=== PATIENT | male | born 1995 | race African-American/Black ===

== ENCOUNTER 2024-07-23 15:24 | Emergency (ER) | payer MEDICAID ==
[~2024-07-23] VITALS: Ht 160 cm; Wt 61.2 kg
[2024-07-23 16:15] LABS: APPEARANCE,URINE Clear (CLEAR); BILIRUBIN,URINE Negative (NEGATIVE); BLOOD, URINE Large Ery/uL (NEGATIVE); COLOR,URINE LIGHT YELLOW (YELLOW); KETONES,URINE Negative (NEGATIVE); LEUKOCYTE ESTERASE ,URINE Negative (NEGATIVE); NITRITE, URINE Negative (NEGATIVE); PH,URINE 7.5 (5.0-8.0); PROTEIN,URINE Negative (NEGATIVE); UGLUCOSE Negative (NEGATIVE); UROBILINOGEN,URINE 0.2 EU/dL (0.2)
[2024-07-23 16:57] LABS: BACTERIA,URINE Rare /HPF (None Seen); RBC,URINE 81-100 /HPF (0-2)
[2024-07-23 16:58] LABS: ADD URINE CULTURE YES; MUCUS,URINE Moderate /LPF (None Seen); SQUAMOUS EPITHELIAL CELL,UR Moderate /HPF (None Seen)
[2024-07-23] MEDS ORDERED: ACETAMINOPHEN 325 MG TABLET ONE ×2 (17:21→17:37)
[2024-07-23] MEDS ORDERED: IOHEXOL-300 100 ML VIAL IV ONE (17:22)
[2024-07-23] MEDS ORDERED: ONDANSETRON HCL/PF 4 MG/2 ML VIAL ONE (17:22)
[2024-07-23] MEDS ORDERED: IV NS 0.9% 250 ML IV ONE (17:22)
[2024-07-23 17:23] LABS: BASOPHILS % (AUTO) 0.4 % (0.0-2.0); EOSINOPHILS % (AUTO) 0.1 % (0.0-6.0); HEMATOCRIT 42 % (39-51); HEMOGLOBIN 13.5 g/dL (13.5-17.5); LYMPHOCYTES % (AUTO) 12.7 % (20.0-44.0); MEAN CORPUSCULAR HEMOGLOBIN 28 PG (26.0-33.0); MEAN CORPUSCULAR HGB CONC 32 g/dl (31.0-36.0); MEAN CORPUSCULAR VOLUME 88 fL (80-96); MONOCYTES # (AUTO) 0.3 K/uL (0.1-1.30); MONOCYTES % (AUTO) 3.4 % (2.0-12.0); NEUTROPHILS # (AUTO) 6.4 K/uL (1.8-8.9); NEUTROPHILS % (AUTO) 83.4 % (43.0-81.0); PLATELET COUNT (AUTO) 194 K/uL (150-450); RED BLOOD CELL COUNT(AUTO) 4.73 MIL/uL (4.5-6.0); WHITE BLOOD COUNT (AUTO) 7.6 K/uL (4.3-11.0)
[2024-07-23] MEDS ORDERED: KETOROLAC TROMETHAMINE 15 MG/ML VIAL ONE (17:23)
[2024-07-23 17:36] LABS: CALCIUM, SERUM 8.8 mg/dL (8.5-10.1); CREATININE 1.2 mg/dL (0.6-1.3); POTASSIUM 4.4 mmol/L (3.5-5.1)
[2024-07-23 17:42] LABS: ALBUMIN 4.2 g/dL (3.4-5.0); BILIRUBIN,DIRECT 0.3 mg/dL (0.0-0.2); BILIRUBIN,TOTAL 1.3 mg/dL (0.2-1.0); TOTAL PROTEIN, SERUM 7.5 g/dL (6.4-8.2)
[2024-07-23] MEDS: IV NS 0.9% 1,000 ML BAG IV ONE (17:43)
[2024-07-23] MEDS: ACETAMINOPHEN 325 MG TABLET PO ONE (17:45)
[2024-07-23] MEDS: ONDANSETRON HCL/PF 4 MG/2 ML VIAL IV ONE (17:45)
[2024-07-23] MEDS: KETOROLAC TROMETHAMINE 15 MG/ML VIAL IV ONE (17:45)
[2024-07-23] MEDS ORDERED: HYDROCODONE/APAP 5/325MG TABLET ONE (19:29)
[2024-07-23] MEDS: HYDROCODONE/APAP 5/325MG TABLET PO ONE (19:30)
[2024-07-23] MEDS ORDERED: DOXY-326 PO (20:00)
[2024-07-23] MEDS ORDERED: CEFTRIAXONE 500 MG VIAL ONE (20:10)
[2024-07-23] MEDS: CEFTRIAXONE 500 MG VIAL IV ONE (20:23)
[2024-07-23 20:52] VITALS: BP 120/70; TEMP 98; O2SAT 99
[2024-07-26 05:09] LABS: CHLAMYDIA TRACHOMATIS NAA Negative (Negative); NEISSERIA GONORRHOEAE NAA Negative (Negative)
== END 2024-07-23 20:53 | disposition home or self-care (01) ==
LOC: ER 15:37
DX: R10.31 Right lower quadrant pain (principal); R31.9 Hematuria, unspecified; R11.2 Nausea with vomiting, unspecified; Z87.442 Personal history of urinary calculi; Z20.822 Contact with and (suspected) exposure to COVID-19
CPT/HCPCS: 99285; 74177; 96365; 96375; 96361; 85025; 80048; 87086; 83690; 80076; 81001; 36415; 87491; 87591; J0696; J2405; J7030; J7050; Q9967; J1885